=== PATIENT | female | born 1950 | race Caucasian/White ===

== ENCOUNTER → 2017-02-08 19:17 | Outpatient (CLI) | payer MEDICARE, OTHER | END | disposition home or self-care (01) | LOC: D.MAMMO 01-19 14:00 | DX: Z12.31 Encounter for screening mammogram for malignant neoplasm of breast (principal) ==

== ENCOUNTER 2017-12-30 13:15 | Emergency (ER) | payer MEDICARE, OTHER ==
[2017-12-30 13:44] LABS: BASOPHILS 0.4 % (0-2); EOSINOPHILS 2.4 % (0-7); HEMATOCRIT 39.8 % (36.0-48.0); HEMOGLOBIN 13.3 g/dL (12-16); LYMPHOCYTES 33.5 % (15-50); MCH 30.8 pg (26.0-34.0); MCHC 33.4 g/dL (31.0-37.0); MCV 92.1 fL (80.0-100.0); MEAN PLATELET VOLUME 9.6 fL (7.4-10.4); MONOCYTES 8.4 % (2-11); NEUTROPHILS 55.3 % (40-80); PLATELET COUNT 243 10x3/uL (130-400); RBC 4.32 10x6/uL (4.00-5.40); RDW 12.6 % (11.5-14.5)
[2017-12-30 13:58] LABS: ALBUMIN 3.9 g/dL (3.4-5.0); ANION GAP 12.6 mmol/L (8-16); BILIRUBIN - TOTAL 0.44 mg/dL (0.2-1.3); CALCIUM 9.4 mg/dL (8.5-10.1); CARBON DIOXIDE 24.6 mmol/L (21.0-32.0); POTASSIUM - SERUM 4.2 mmol/L (3.5-5.1); PROTEIN - SERUM 7.5 g/dL (6.4-8.2)
[2017-12-30 14:18] LABS: INR 0.93 (0.85-1.17); PROTIME 12.1 SECONDS (11.6-15.0)
[2017-12-30 14:19] LABS: APTT 26.8 SECONDS (22.8-39.4)
[2017-12-30 16:05] LABS: APPEARANCE CLEAR (CLEAR); BILIRUBIN NEGATIVE (NEGATIVE); COLOR YELLOW (YELLOW); GLUCOSE NEGATIVE (NEGATIVE); KETONE NEGATIVE (NEGATIVE); NITRITE NEGATIVE (NEGATIVE); PROTEIN NEGATIVE (NEGATIVE); UROBILINOGEN NORMAL (NORMAL)
== END 2017-12-30 16:20 | disposition home or self-care (01) ==
LOC: D.ER 13:15
PROVIDERS: Emergency Medicine
DX: M71.21 Synovial cyst of popliteal space [Baker], right knee (principal); E03.9 Hypothyroidism, unspecified; I10 Essential (primary) hypertension; K21.9 Gastro-esophageal reflux disease without esophagitis

== ENCOUNTER → 2018-05-02 13:00 | Outpatient (CLI) | payer MEDICARE, OTHER | END | disposition home or self-care (01) | LOC: D.MRI 13:00 | DX: S83.272A Complex tear of lateral meniscus, current injury, left knee, initial encounter (principal) ==

== ENCOUNTER 2018-05-19 18:00 | Outpatient (CLI) | payer MEDICARE, OTHER ==
[2018-06-16] MEDS ORDERED: OMEPRAZOLE20 M1 PO (08:46)
[2018-06-16] MEDS ORDERED: LEXAPRO10 MG PO (08:46)
[2018-06-16] MEDS ORDERED: VASOTEC10 MG PO (08:47)
[2018-06-16] MEDS ORDERED: MOBIC7.5 MG PO (08:47)
[2018-06-16] MEDS ORDERED: VALTREX500 MG PO (08:47)
[2018-06-16] MEDS ORDERED: LEVOTHYROXINE50 MCG PO (08:48)
[2018-06-16] MEDS ORDERED: BUPROPION XL300 MG PO (08:48)
[2018-06-16] MEDS ORDERED: OXYBUTYNIN CHLOR5 MG PO (08:49)
[2018-06-19 08:18] VITALS: BMI 28.0
== END 2018-05-19 23:59 | disposition home or self-care (01) ==
LOC: D.MAMMO 18:00
DX: Z12.31 Encounter for screening mammogram for malignant neoplasm of breast (principal)

== ENCOUNTER 2018-06-19 07:26 | Day surgery (SDC) | payer MEDICARE, OTHER ==
[2018-06-16 09:27] LABS: HEMATOCRIT 38.9 % (36.0-48.0); HEMOGLOBIN 13.2 g/dL (12-16); MCH 31.3 pg (26.0-34.0); MCHC 33.9 g/dL (31.0-37.0); MCV 92.2 fL (80.0-100.0); MEAN PLATELET VOLUME 9.4 fL (7.4-10.4); RBC 4.22 10x6/uL (4.00-5.40); RDW 12.7 % (11.5-14.5); WBC 4.7 10x3/uL (4.8-10.8)
[~2018-06-19] VITALS: Ht 177.8 cm; Wt 88.5 kg
--- NOTE | ~2018-06-19 | OP ---
PATIENT NAME: MARIS SALGUERO MEDICAL RECORD: [id number] :48 LOCATION:[facility] ADMISSION DATE: SURGEON: NOHELIA GONZALEZ MD DATE OF OPERATION: 06/19/2018 PREOPERATIVE DIAGNOSIS: Lateral meniscus tear of the right knee. POSTOPERATIVE DIAGNOSIS: Lateral meniscus tear of the right knee. PROCEDURE: Arthroscopic partial lateral meniscectomy. SURGEON: Nohelia Gonzalez MD ANESTHESIA: General. INTRAOPERATIVE COMPLICATIONS: None. SUMMARY OF PATHOLOGIC FINDINGS: Unfortunately, the patient had a very complex tear of the posterior horn of the lateral meniscus. It had significant amount of damage to the tibial plateau and the lateral femoral condyle with grade IV, III, and II lesion of the entire condyle. OPERATIVE SUMMARY IN DETAIL: After obtaining the appropriate preoperative orthopedic surgery consent as well as anesthetic consultation, evaluation and clearance, the patient was brought to the operating room and placed on the operating table in supine position. After general laryngeal mask airway was administered, tourniquet was placed on the proximal aspect of the right lower extremity. Right lower extremity was then prepped and draped in routine sterile fashion. The leg was elevated and exsanguinated, tourniquet was inflated to 350 mmHg. Routine inferolateral portal was established followed by superomedial portal and inferomedial portal. Diagnostic arthroscopy did reveal the above findings. Combination of both arthroscopic meniscotomes as well as an arthroscopic resector were then utilized to debride pretty much the entire posterior lateral corner of the meniscus, which was torn at the popliteal fossa and was off the capsule to about the 9 o'clock position. Having completed this debridement, gentle chondroplasty was done of the large femoral lesion. Next, the knee was then insufflated with 30 cc of 0.25% Marcaine with 80 mg of Depo-Medrol. Arthroscopy portals were closed in routine interrupted fashion using 4-0 Prolene. Sterile dressings were applied. The patient was awakened and taken to the recovery room in stable condition. All final needle and sponge counts were correct. TRANSINT:[id number] Voice Confirmation ID: [id number] DOCUMENT ID: [id number] NOHELIA GONZALEZ MD at 1459 CC: [id number] DICTATION DATE: 06/20/18 1005 LOG TRUCK DRIVER: 06/20/18 1115 [place] [facility] [place] [facility] [address] [place] [address]
[~2018-06-19 07:26] MED LIST: BUPROPION XL300 MG PO; LEVOTHYROXINE50 MCG PO; LEXAPRO10 MG PO; MOBIC7.5 MG PO; OMEPRAZOLE20 M1 PO; OXYBUTYNIN CHLOR5 MG PO; VALTREX500 MG PO; VASOTEC10 MG PO
[2018-06-19 08:18] VITALS: BP 126/65; Ht 177.8 cm; Wt 88.5 kg
[2018-06-19] MEDS ORDERED: HYDROCODONE-APA1 TAB PO (11:28)
== END 2018-06-19 14:30 | disposition home or self-care (01) ==
LOC: D.OPS 07:26 → D.PAN 09:45 → D.OPS 14:30
PROVIDERS: Anesthesiology
DX: S83.271A Complex tear of lateral meniscus, current injury, right knee, initial encounter (principal); Z01.812 Encounter for preprocedural laboratory examination

== ENCOUNTER → 2018-06-27 18:33 | Outpatient (CLI) | payer MEDICARE, OTHER ==
[2018-06-19 08:18] VITALS: BMI 28.0
[~2018-06-27 18:33] MED LIST changes: +HYDROCODONE-APA1 TAB PO
== END | disposition home or self-care (01) ==
LOC: D.MAMMO 06-12 08:30
DX: R92.8 Other abnormal and inconclusive findings on diagnostic imaging of breast (principal)

== ENCOUNTER 2019-06-12 08:00 | Outpatient (CLI) | payer MEDICARE, OTHER ==
[2018-06-19 08:18] VITALS: BMI 28.0
== END 2019-06-12 23:59 | disposition home or self-care (01) ==
LOC: D.MAMMO 08:00
PROVIDERS: ATTEND Family Medicine
DX: Z12.31 Encounter for screening mammogram for malignant neoplasm of breast (principal)

== ENCOUNTER 2020-07-21 11:00 | Outpatient (CLI) | payer MEDICARE, OTHER ==
[2018-06-19 08:18] VITALS: BMI 28.0
== END 2020-07-21 12:00 | disposition home or self-care (01) ==
LOC: D.MAMMO 11:00
PROVIDERS: ATTEND Nurse Practitioner Family
DX: Z12.31 Encounter for screening mammogram for malignant neoplasm of breast (principal)